=== PATIENT | female | born 1955 | race Two or more races ===

== ENCOUNTER 2021-05-04 22:25 | Emergency (ER) | payer OTHER ==
[~2021-05-04] VITALS: Ht 162.6 cm; Wt 85.0 kg
[2021-05-04 22:38] VITALS: BP 187/110
== END 2021-05-05 05:00 | disposition left against medical advice (07) ==
LOC: ER 22:27
DX: R00.0 Tachycardia, unspecified (principal); Z53.21 Procedure and treatment not carried out due to patient leaving prior to being seen by health care provider
CPT/HCPCS: 93005